=== PATIENT | female | born 1985 | race Caucasian/White ===

== ENCOUNTER → 2016-11-17 | Outpatient (CLI) | payer SELFPAY ==
[~2016-11-17] MED LIST: AMOXICILLIN500 M1 PO; FLEXERIL10 MG PO; LIDOCAINE700 MG TD; MOTRIN800 MG PO; NAPROSYN500 MG PO; NOHOMEMEDS; PERCOCET 5/31 TABLET PO; STOOL SOFTENER240 MG PO; TRAMADOL HCL50 MG PO; TYLENOL WITH C1 EACH PO
== END | disposition home or self-care (01) ==
LOC: RAD 10:00
DX: N83.202 Unspecified ovarian cyst, left side (principal)
CPT/HCPCS: 76856

== ENCOUNTER 2016-11-19 23:09 | Emergency (ER) | payer SELFPAY ==
[~2016-11-19] VITALS: Ht 162.6 cm; Wt 77.4 kg
[~2016-11-19 23:09] MED LIST changes: -FLEXERIL10 MG PO; -NAPROSYN500 MG PO
[2016-11-20] MEDS ORDERED: FLEXERIL10 MG PO (00:14)
[2016-11-20] MEDS ORDERED: NAPROSYN500 MG PO (00:14)
[2016-11-20 00:21] VITALS: BP 128/87
== END 2016-11-20 00:26 | disposition home or self-care (01) ==
LOC: EME 23:09
DX: M54.5 Low back pain (principal); R10.9 Unspecified abdominal pain; F17.200 Nicotine dependence, unspecified, uncomplicated
CPT/HCPCS: 81003; 99281; 99283

== ENCOUNTER 2016-12-04 09:39 | Emergency (ER) | payer SELFPAY ==
[~2016-12-04] VITALS: Ht 162.6 cm; Wt 78.2 kg
[~2016-12-04 09:39] MED LIST changes: +FLEXERIL10 MG PO; +NAPROSYN500 MG PO
[2016-12-04] MEDS ORDERED: PERCOCET 5/31 TABLET PO (11:59)
[2016-12-04] MEDS ORDERED: AMOXICILLIN500 MG PO (11:59)
[2016-12-04 12:17] VITALS: BP 122/91
== END 2016-12-04 12:18 | disposition home or self-care (01) ==
LOC: EME 09:39
DX: K08.89 Other specified disorders of teeth and supporting structures (principal); K05.10 Chronic gingivitis, plaque induced; K02.9 Dental caries, unspecified; F17.200 Nicotine dependence, unspecified, uncomplicated
CPT/HCPCS: 99281; 99283

== ENCOUNTER 2017-08-15 13:35 | Emergency (ER) | payer SELFPAY ==
[~2017-08-15] VITALS: Ht 162.6 cm; Wt 84.6 kg
[~2017-08-15 13:35] MED LIST changes: +AMOXICILLIN500 MG PO
[2017-08-15 14:34] LABS: HEMATOCRIT 39.2 % (36.0-46.0); MCH 31.5 PG (29.0-34.0); MCHC 34.2 G/DL (30.0-36.0); PLATELET COUNT 223 K/uL (156-360); RBC DIS.WIDTH-CV 12.2 % (11.8-14.6); RBC DIS.WIDTH-SD 40.7 % (39-53); RED BLOOD COUNT 4.26 M/uL (3.80-5.20); WHITE BLOOD COUNT 9.7 K/uL (4.1-10.2)
[2017-08-15 14:42] LABS: ADD MIUA? YES; BILIRUBIN NEGATIVE; BLOOD NEGATIVE; COLOR YELLOW ((YELLOW)); GLUCOSE (STRIP) NEGATIVE; KETONES 5; LEUKOCYTES NEGATIVE; NITRITE NEGATIVE; PROTEIN (STRIP) NEGATIVE; SPECIFIC GRAVITY 1.012 (1.000-1.030); UROBILINOGEN 0.2 MG/DL (0.2-1.0)
[2017-08-15 14:45] LABS: CHLORIDE 108 mEq/L (99-109); POTASSIUM 4.1 mEq/L (3.7-5.4); SODIUM 139 mEq/L (136-147)
[2017-08-15 14:47] LABS: GLUCOSE 102 mg/dL (70-99)
[2017-08-15 14:49] LABS: ANION GAP 7 MEQ/L (2-14); TOTAL BILIRUBIN 0.7 mg/dL (0.0-1.0)
[2017-08-15 14:51] LABS: ALKALINE PHOSPHATASE 47 IU/L (3-129); GFR ESTIMATE (CALCULATED) > 59 mL/min/
[2017-08-15 14:52] LABS: UREA NITROGEN (BUN) 9 mg/dL (9-23)
[2017-08-15 15:21] LABS: QUANTITATIVE HCG 51132.8 MIU/ML
[2017-08-15 15:25] LABS: CASTS NONE SEEN /LPF; EPITHELIAL CELLS 1+ /HPF; MUCUS NONE SEEN /LPF
[2017-08-15 15:26] LABS: BACTERIA 1+ /HPF; RED BLOOD CELLS NONE SEEN /HPF (0-5); UCUL ADDED? NO; WHITE BLOOD CELLS NONE SEEN /HPF (0-5)
[2017-08-15 17:38] VITALS: BP 130/73
== END 2017-08-15 17:38 | disposition home or self-care (01) ==
LOC: EME 13:35
DX: O20.0 Threatened abortion (principal); R10.30 Lower abdominal pain, unspecified; Z3A.01 Less than 8 weeks gestation of pregnancy; O99.331 Smoking (tobacco) complicating pregnancy, first trimester; F17.200 Nicotine dependence, unspecified, uncomplicated
CPT/HCPCS: 76801; 80053; 81003; 84702; 85027; 99281; 99283

== ENCOUNTER 2017-10-17 11:49 | Emergency (ER) | payer OTHER ==
[~2017-10-17] VITALS: Ht 162.6 cm; Wt 81.4 kg
[2017-10-17 12:29] LABS: HEMATOCRIT 33.1 % (36.0-46.0); MCH 33.2 PG (29.0-34.0); MCHC 35.3 G/DL (30.0-36.0); MEAN PLAT.VOLUME 9.9 uM^3 (9.5-12.4); PLATELET COUNT 201 K/uL (156-360); RBC DIS.WIDTH-CV 12.2 % (11.8-14.6); RBC DIS.WIDTH-SD 42.3 % (39-53); RED BLOOD COUNT 3.52 M/uL (3.80-5.20)
[2017-10-17 12:52] LABS: QUANTITATIVE HCG 13003.7 MIU/ML
[2017-10-17 13:24] LABS: CHLORIDE 106 mEq/L (99-109); POTASSIUM 3.9 mEq/L (3.7-5.4); SODIUM 135 mEq/L (136-147)
[2017-10-17 13:26] LABS: GLUCOSE 120 mg/dL (70-99)
[2017-10-17 13:27] LABS: ANION GAP 5 MEQ/L (2-14)
[2017-10-17 13:28] LABS: TOTAL BILIRUBIN 0.8 mg/dL (0.0-1.0)
[2017-10-17 13:30] LABS: ALKALINE PHOSPHATASE 42 IU/L (3-129); GFR ESTIMATE (CALCULATED) > 59 mL/min/
[2017-10-17 13:31] LABS: UREA NITROGEN (BUN) 6 mg/dL (9-23)
[2017-10-17 14:41] LABS: ADD MIUA? YES; BILIRUBIN NEGATIVE; BLOOD SMALL; COLOR YELLOW ((YELLOW)); GLUCOSE (STRIP) NEGATIVE; KETONES 5; LEUKOCYTES NEGATIVE; NITRITE NEGATIVE; PROTEIN (STRIP) NEGATIVE; UROBILINOGEN 0.2 MG/DL (0.2-1.0)
[2017-10-17 14:50] LABS: BACTERIA RARE /HPF; EPITHELIAL CELLS 2+ /HPF; MUCUS TRACE /LPF; RED BLOOD CELLS 0-5 /HPF (0-5); UCUL ADDED? NO; WHITE BLOOD CELLS 0-5 /HPF (0-5)
[2017-10-17 15:21] VITALS: BP 119/80
== END 2017-10-17 15:23 | disposition home or self-care (01) ==
LOC: EME 11:49
DX: O20.0 Threatened abortion (principal); O99.332 Smoking (tobacco) complicating pregnancy, second trimester; F17.200 Nicotine dependence, unspecified, uncomplicated; Z3A.16 16 weeks gestation of pregnancy
CPT/HCPCS: 76805; 80053; 81003; 84702; 85027; 99281; 99284

== ENCOUNTER 2018-03-29 00:47 | Inpatient (IN) | payer OTHER ==
[~2018-03-29] VITALS: Ht 162.6 cm; Wt 102.3 kg
[2018-03-29] VITALS (11 sets, daily range): BP systolic 132–159; BP diastolic 63–94
[2018-03-29] MEDS ORDERED: SUBOXONE 2 MG-1 EACH SL (01:04)
[2018-03-29] MEDS ORDERED: PRENATAL TABLE1 EAC3 PO (01:04)
[2018-03-29 01:57] LABS: AMPHETAMINE NEGATIVE (500 ng/mL); BARBITURATES NEGATIVE (200 ng/mL); BENZODIAZEPINES NEGATIVE (150 ng/mL); BUPRENORPHINE PRESUMPTIVE POSITIVE (10 ng/mL); COCAINE NEGATIVE (150 ng/mL); METHADONE NEGATIVE (200 ng/mL); METHAMPHETAMINE NEGATIVE (500 ng/mL); OPIATES (MORPHINE) NEGATIVE (100 ng/mL); OXYCODONE NEGATIVE (100 ng/mL); PHENCYCLIDINE NEGATIVE (25 ng/mL); PROPOXYPHENE NEGATIVE (300 ng/mL); THC CANNABINOIDS NEGATIVE (50 ng/mL); TRICYCLIC ANTIDEPRESSANTS NEGATIVE (300 ng/mL)
[2018-03-29 02:11] LABS: BASOPHIL (%) 0.3 % (0-1); EOSINOPHIL (%) 0.6 % (0-5); EOSINOPHIL COUNT 0.1 K/uL (0-0.3); HEMATOCRIT 37.6 % (36.0-46.0); HEMOGLOBIN 13.2 G/DL (11.9-15.5); IMMATURE GRANULOCYTE (%) 0.5 % (0.0-0.7); LYMPHOCYTE (%) 21.2 % (15-42); LYMPHOCYTE COUNT 2.3 K/uL (1.0-2.8); MCHC 35.1 G/DL (30.0-36.0); MONOCYTE (%) 5.2 % (3-12); MONOCYTE COUNT 0.6 K/uL (0-0.8); NEUTROPHIL (%) 72.2 % (45-76); NEUTROPHIL COUNT 7.9 K/uL (1.8-6.4); PLATELET COUNT 213 K/uL (156-360); RBC DIS.WIDTH-CV 12.2 % (11.8-14.6); RBC DIS.WIDTH-SD 40.8 % (39-53); RED BLOOD COUNT 4.13 M/uL (3.80-5.20); WHITE BLOOD COUNT 10.9 K/uL (4.1-10.2)
[2018-03-30 05:53] LABS: BASOPHIL (%) 0.2 % (0-1); EOSINOPHIL (%) 0.8 % (0-5); EOSINOPHIL COUNT 0.1 K/uL (0-0.3); HEMATOCRIT 32.2 % (36.0-46.0); IMMATURE GRANULOCYTE (%) 0.3 % (0.0-0.7); LYMPHOCYTE (%) 29.1 % (15-42); LYMPHOCYTE COUNT 2.6 K/uL (1.0-2.8); MCHC 34.5 G/DL (30.0-36.0); MCV 92.8 FL (83-99); MONOCYTE (%) 6.5 % (3-12); MONOCYTE COUNT 0.6 K/uL (0-0.8); NEUTROPHIL (%) 63.1 % (45-76); NEUTROPHIL COUNT 5.6 K/uL (1.8-6.4); RBC DIS.WIDTH-CV 12.5 % (11.8-14.6); RBC DIS.WIDTH-SD 42.5 % (39-53); RED BLOOD COUNT 3.47 M/uL (3.80-5.20); WHITE BLOOD COUNT 8.9 K/uL (4.1-10.2)
[2018-03-30 05:55] LABS: HEMOGLOBIN 11.1 G/DL (11.9-15.5)
[2018-03-30 06:18] LABS: ABS NEUTROPHIL COUNT 6.7; EOSINOPHIL ABS CT 0; LYMPHOCYTES 20.9 % (15.0-45.0); MONOCYTES 4.3 % (0-9.0); PLAT.SUFFICIENCY ADEQUATE; SEG.NEUTROPHILS 74.8 % (46.0-76.0); SMUDGE CELLS 8.7
[2018-03-30 06:23] LABS: PLATELET COUNT 144 K/uL (156-360)
[2018-03-31 09:56] LABS: ALBUMIN 2.9 G/DL (3.2-4.8); ALKALINE PHOSPHATASE 91 IU/L (3-129); ALT (GPT) 20 IU/L (3-49); AST (GOT) 18 IU/L (2-34); CHLORIDE 109 MEQ/L (99-109); CREATININE 0.7 MG/DL (0.6-1.3); GFR ESTIMATE (CALCULATED) > 59 mL/min/; GLUCOSE 94 mg/dL (70-99); POTASSIUM 3.8 MEQ/L (3.7-5.4); SODIUM 138 MEQ/L (136-147); TOTAL BILIRUBIN 0.4 MG/DL (0.0-1.0); TOTAL PROTEIN 5.1 G/DL (6.4-8.3); UREA NITROGEN (BUN) 8 mg/dL (9-23)
[2018-03-31] MEDS ORDERED: IBUPROFEN800 MG PO (11:11)
[2018-03-31] MEDS ORDERED: Tylenol Extra Streng PO (11:11)
== END 2018-03-31 17:00 | disposition home or self-care (01) | DRG 775 ==
LOC: LDRP-OP → 2WEST 00:48 → LDRP-OP 05-08 10:55
PROVIDERS: Advanced Practice Midwife; Obstetrics & Gynecology
DX: O70.0 First degree perineal laceration during delivery (principal); O99.324 Drug use complicating childbirth; F11.20 Opioid dependence, uncomplicated; O99.334 Smoking (tobacco) complicating childbirth; F17.210 Nicotine dependence, cigarettes, uncomplicated; O99.214 Obesity complicating childbirth; E66.9 Obesity, unspecified; Z68.31 Body mass index [BMI] 31.0-31.9, adult; Z3A.39 39 weeks gestation of pregnancy; Z37.0 Single live birth
CPT/HCPCS: 80053; 85025; J0571; J7120